=== PATIENT | female | born 1990 ===

== ENCOUNTER 2021-07-16 09:13 | Outpatient (CLI) | payer OTHER | END 2021-07-16 09:58 | disposition home or self-care (01) | LOC: PRENATAL 09:13 | PROVIDERS: ATTEND Obstetrics & Gynecology Maternal & Fetal Medicine | DX: O35.0XX1 Maternal care for (suspected) central nervous system malformation in fetus, fetus 1 (principal); O35.3XX1 Maternal care for (suspected) damage to fetus from viral disease in mother, fetus 1; O98.512 Other viral diseases complicating pregnancy, second trimester; Z36.89 Encounter for other specified antenatal screening; Z3A.25 25 weeks gestation of pregnancy ==

== ENCOUNTER 2021-10-18 14:15 | Inpatient (IN) | payer OTHER ==
[~2021-10-18] VITALS: Ht 157.5 cm; Wt 68.0 kg
[2021-10-26] MEDS ORDERED: PRENATAL CAPLE1 EAC1 PO (11:12)
[2021-10-26] MEDS ORDERED: IRON325 MG PO (11:12)
[2021-10-28] MEDS ORDERED: IBUPROFEN800 MG PO (13:51)
[2021-10-28] MEDS ORDERED: DOCUSATE SODIU100 MG PO (13:52)
== END 2021-10-28 14:22 | disposition home or self-care (01) | DRG 807 ==
LOC: OB/GYN 10-26 08:48 → LDR 10-26 08:48 → OB/GYN 10-26 18:28
PROVIDERS: ADMIT Obstetrics & Gynecology; ATTEND Obstetrics & Gynecology
PROC: 10E0XZZ Delivery of Products of Conception, External Approach (ICD-10-PCS; principal; 2021-10-26)
PROC: 0HQ9XZZ Repair Perineum Skin, External Approach (ICD-10-PCS; 2021-10-26)
PROC: 10907ZC Drainage of Amniotic Fluid, Therapeutic from Products of Conception, Via Natural or Artificial Opening (ICD-10-PCS; 2021-10-26)
PROC: 3E0P7VZ Introduction of Hormone into Female Reproductive, Via Natural or Artificial Opening (ICD-10-PCS; 2021-10-26)
PROC: 4A1HXFZ Monitoring of Products of Conception, Cardiac Rhythm, External Approach (ICD-10-PCS; 2021-10-26)
DX: O70.0 First degree perineal laceration during delivery (principal); Z37.0 Single live birth; O36.8130 Decreased fetal movements, third trimester, not applicable or unspecified; Z3A.39 39 weeks gestation of pregnancy

== ENCOUNTER 2021-10-24 14:15 | Outpatient (CLI) | payer OTHER | END 2021-10-24 14:45 | disposition home or self-care (01) | LOC: NST 14:15 | PROVIDERS: ATTEND Obstetrics & Gynecology | DX: Z34.83 Encounter for supervision of other normal pregnancy, third trimester (principal) ==

== ENCOUNTER 2023-07-05 07:21 | Day surgery (SDC) | payer OTHER ==
[~2023-07-05 07:21] MED LIST: DOCUSATE SODIU100 MG PO; IBUPROFEN800 MG PO; IRON325 MG PO; PRENATAL CAPLE1 EAC1 PO
== END 2023-07-05 15:35 | disposition home or self-care (01) ==
LOC: CIR.AMB 07:21
PROVIDERS: ATTEND Surgery Surgery of the Hand
DX: D36.12 Benign neoplasm of peripheral nerves and autonomic nervous system, upper limb, including shoulder (principal); Z20.822 Contact with and (suspected) exposure to COVID-19